=== PATIENT | female | born 2000 | race Asian ===

== ENCOUNTER 2022-01-23 21:06 | Emergency (ER) | payer OTHER, SELFPAY ==
[2022-01-23 21:11] VITALS: BP 115/66; PULSE 75; RESP 16; TEMP 37.1; O2SAT 97; BMI 24.2
[2022-01-24 00:32] VITALS: BP 105/62
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
== END 2022-01-24 00:39 | disposition home or self-care (01) ==
PROVIDERS: Emergency Provider Family Medicine
DX: F32.A Depression, unspecified (principal); F43.9 Reaction to severe stress, unspecified
CPT/HCPCS: 99283